=== PATIENT | female | born 1955 | race Two or more races ===

== ENCOUNTER 2019-01-10 12:44 | Emergency (ER) | payer OTHER ==
[~2019-01-10] VITALS: Ht 157.5 cm; Wt 97.5 kg
[2019-01-10 16:37] VITALS: BP 121/64
== END 2019-01-10 16:51 | disposition home or self-care (01) ==
LOC: ER 12:53
DX: S00.83XA Contusion of other part of head, initial encounter (principal); R11.2 Nausea with vomiting, unspecified; I10 Essential (primary) hypertension; W06.XXXA Fall from bed, initial encounter; Y93.89 Activity, other specified; Y92.89 Other specified places as the place of occurrence of the external cause; Y99.8 Other external cause status